=== PATIENT | male | born 1960 | race Caucasian/White ===

== ENCOUNTER 2020-12-22 09:04 | Day surgery (SDC) | payer BC ==
[2020-12-22] MEDS: Sodium Chloride 0.9% 1,000 ML IV SCH (09:39)
[2020-12-22] MEDS ORDERED: Glycopyrrolate 0.2 MG/ML 2 ML SDV ONE (10:50)
[2020-12-22] MEDS ORDERED: Benzocaine/Butamben/Tetracaine Top Spray 56 GM Canister ONE (10:50)
[2020-12-22] MEDS ORDERED: Propofol 200 MG/20 ML SDV ONE (10:50)
[2020-12-22 11:06] VITALS: BP 135/88; PULSE 76
--- NOTE | 2020-12-22 12:00 | OR ---
DATE OF OPERATION: 12/22/2020 SURGEON: Liang Sadler MD PREOPERATIVE DIAGNOSIS: Epigastric pain. POSTOPERATIVE DIAGNOSIS: Epigastric pain. PROCEDURE: EGD with biopsy. ANESTHESIA: MAC. ESTIMATED BLOOD LOSS: Minimal. COMPLICATIONS: None. INDICATION FOR THE PROCEDURE: The patient is a 60-year-old male who has history of GERD in the past and does take omeprazole regularly. Over the past month, had acute onset of increased pain and has had his dose of omeprazole increased and has had decreased symptoms since that time, however, still has intermittent bouts of increased pain. He is brought to the OR today for EGD. DESCRIPTION OF PROCEDURE: Informed consent was obtained with the patient. The patient was taken to the operating room, placed on the table in the left lateral decubitus position. Monitored anesthesia care has been secured. Esophagogastroscope was then advanced through the oral cavity and directed towards the second portion of duodenum. Duodenum was reached and appeared normal. Gastric antrum did have some minimal gastritis. Cold forceps biopsy was taken for H pylori testing. No ulcers identified. Retroflexion performed, which was also otherwise unremarkable. The scope was then withdrawn into the esophagus. Distal esophagus was unremarkable. Remainder of the esophagus was also otherwise unremarkable. Esophagogastroscope was then withdrawn. FINDINGS: Minimal gastritis in the antrum. RECOMMENDATIONS: We will follow up on H pylori biopsy testing. Otherwise, would continue current medications. If still symptomatic and H pylori negative, would recommend a short course of sucralfate. DOREEN/LUCIEN /[id number]
== END 2020-12-22 12:10 | disposition home or self-care (01) ==
LOC: LB.SDS 09:04
PROVIDERS: ATTEND Surgery
DX: K29.50 Unspecified chronic gastritis without bleeding (principal); K21.9 Gastro-esophageal reflux disease without esophagitis
CPT/HCPCS: 43239; J2704; J3490; J7030

== ENCOUNTER 2024-08-15 22:10 | Emergency (ER) | payer MEDICAID ==
[2024-08-15] MEDS: Aspirin 81 MG Tab.Chew PO ONE (22:25)
[2024-08-15 22:40] LABS: BASOPHILS ABSOLUTE AUTO 0.05 K/uL (0.02-0.10); BASOPHILS PERCENT AUTO 0.6 % (0.0-0.5); EOSINOPHILS ABSOLUTE AUTO 0.31 K/uL (0.04-0.40); EOSINOPHILS PERCENT AUTO 3.5 % (1.0-5.0); HEMOGLOBIN 15.4 g/dL (13.0-18.0); LYMPHOCYTES ABSOLUTE AUTO 2.32 K/uL (1.50-4.00); LYMPHOCYTES PERCENT AUTO 26.4 % (20.0-40.0); MEAN CORPUSCULAR HEMOGLOBIN 30.4 pg (27.0-32.0); MEAN CORPUSCULAR HGB CONC 33.5 g/dL (31.0-35.0); MEAN CORPUSCULAR VOLUME 91 fL (76-96); MEAN PLATELET VOLUME 10.3 fL (6.0-10.0); MONOCYTES ABSOLUTE AUTO 0.51 K/uL (0.20-0.80); MONOCYTES PERCENT AUTO 5.8 % (3.0-10.0); NEUTROPHILS PERCENT AUTO 63.7 % (45.0-70.0); PLATELET COUNT,PLT 252 K/uL (150-400); RED BLOOD CELL COUNT 5.07 M/uL (4.50-6.50); RED CELL DISTRIBUTION WIDTH 13.6 % (11.0-16.0); WHITE BLOOD CELL COUNT,WBC 8.8 K/uL (4.0-11.0)
[2024-08-15] MEDS ORDERED: Sodium Chloride 0.9% 10 ML Syringe FLUSH PRN (22:40)
[2024-08-15] MEDS: GI Cocktail Oral Solution 30 ML PO ONE (22:42)
[2024-08-15 23:00] LABS: MAGNESIUM 1.9 mg/dL (1.8-2.4); TROPONIN I HIGH SENSITIVITY 7.6 pg/ml (<=60.4)
[2024-08-15 23:04] LABS: ALBUMIN 3.6 g/dL (3.4-5.0); ANION GAP 13.3 mmol/L (5.0-15.0); BILIRUBIN TOTAL 0.4 mg/dL (0.0-1.0); BUN/CREATININE RATIO 7.8 (6-25); CALCIUM 9.1 mg/dL (8.5-10.1); CARBON DIOXIDE,CO2 26.8 mmol/L (21.0-32.0); CREATININE 1.41 mg/dL (0.70-1.30); EST CRCL DRUG DOSING (CG) 56.81 mL/min; POTASSIUM,K 4.1 mmol/L (3.5-5.1); PROTEIN TOTAL,TP 7.1 g/dL (6.4-8.2)
[2024-08-15] MEDS: Pantoprazole 40 MG Vial IVPUSH ONE (23:14)
[2024-08-15 23:17] LABS: INR 0.9 (1.0-3.5); PTT,PARTIAL THROMBOPLSTIN TIME 25.6 SECONDS (24.4-33.2)
[2024-08-15 23:19] LABS: PROTHROMBIN TIME 9.9 sec (9.0-11.5)
[2024-08-15] MEDS: Sodium Chloride 0.9% 1,000 ML IV ONE (23:25)
[2024-08-16] MEDS: Ketorolac 15 MG/ML SDV IVPUSH SCH (02:01)
[2024-08-16 02:23] VITALS: BP 128/88; PULSE 58
== END 2024-08-16 02:10 | disposition home or self-care (01) ==
LOC: LB.ED 22:10
DX: R07.89 Other chest pain (principal); Z79.899 Other long term (current) drug therapy
CPT/HCPCS: 36415; 71045; 80053; 83690; 83735; 84484; 85025; 85379; 85610; 85730; 93010; 96361; 96374; 96375; 99284; 99285-25; A9270-GY; J1885; J2470; J7030

== ENCOUNTER 2025-02-07 15:31 | Emergency (ER) | payer MEDICAID ==
[2025-02-07 16:07] LABS: BASOPHILS ABSOLUTE AUTO 0.07 K/uL (0.02-0.10); BASOPHILS PERCENT AUTO 0.6 % (0.0-0.5); EOSINOPHILS ABSOLUTE AUTO 0.42 K/uL (0.04-0.40); EOSINOPHILS PERCENT AUTO 3.6 % (1.0-5.0); LYMPHOCYTES ABSOLUTE AUTO 4.79 K/uL (1.50-4.00); LYMPHOCYTES PERCENT AUTO 41.1 % (20.0-40.0); MEAN PLATELET VOLUME 10.2 fL (6.0-10.0); MONOCYTES ABSOLUTE AUTO 0.88 K/uL (0.20-0.80); MONOCYTES PERCENT AUTO 7.5 % (3.0-10.0); NEUTROPHILS ABSOLUTE AUTO 5.50 K/uL (2.00-7.50); NEUTROPHILS PERCENT AUTO 47.2 % (45.0-70.0); PLATELET COUNT,PLT 316 K/uL (150-400); RED BLOOD CELL COUNT 5.12 M/uL (4.50-6.50); RED CELL DISTRIBUTION WIDTH 13.6 % (11.0-16.0); WHITE BLOOD CELL COUNT,WBC 11.7 K/uL (4.0-11.0)
[2025-02-07 16:17] LABS: A/G RATIO 1.0 (0.8-2.0); ALANINE AMINOTRANSFERASE,ALT 26.0 U/L (12-78); ASPARTATE AMNIOTRANSFERASE,AST 18.0 U/L (15-37); BILIRUBIN TOTAL 0.3 mg/dL (0.0-1.0); BLOOD UREA NITROGEN,BUN 13.0 mg/dL (8-26); CARBON DIOXIDE,CO2 22.9 mmol/L (21.0-32.0); CHLORIDE,CL 103.0 mmol/L (98-107); CREATININE 1.23 mg/dL (0.70-1.30); EST CRCL DRUG DOSING (CG) 62.27 mL/min; ESTIMATED GFR 66.0 mL/min (>60); GLUCOSE RANDOM 114.0 mg/dL (74-100); POTASSIUM,K 3.1 mmol/L (3.5-5.1); PROTEIN TOTAL,TP 7.5 g/dL (6.4-8.2); SODIUM,NA 141.0 mmol/L (136-145)
[2025-02-07 16:20] LABS: PCO2 ARTERIAL 23.0 mmHg (35-45)
[2025-02-07] MEDS ORDERED: Sodium Chloride 0.9% 10 ML Syringe FLUSH PRN (16:21)
[2025-02-07 16:22] LABS: BASE EXCESS ARTERIAL -6.5 (-2-2); BICARBONATE,ARTERIAL 17.0 mmol/L (22-26); O2 SATURATION ARTERIAL 99.4 % (95-98); PO2 ARTERIAL 137.0 mmHg (80-105)
[2025-02-07 18:14] LABS: AMPHETAMINES SCREEN, URINE NEGATIVE (NEGATIVE); METHADONE SCREEN, URINE NEGATIVE (NEGATIVE); METHAMPHETAMINES SCREEN, URINE NEGATIVE (NEGATIVE); OXYCODONE SCREEN,URINE NEGATIVE (NEGATIVE)
[2025-02-07 18:15] LABS: THC SCREEN,URINE 50 NG/ML POSITIVE (NEGATIVE)
[2025-02-07 19:35] VITALS: BP 113/75; PULSE 67
== END 2025-02-07 19:25 | disposition home or self-care (01) ==
LOC: LB.ED 15:31
DX: R56.9 Unspecified convulsions (principal); I10 Essential (primary) hypertension; F17.290 Nicotine dependence, other tobacco product, uncomplicated; Z79.899 Other long term (current) drug therapy
CPT/HCPCS: 36415; 36600; 70450; 71045; 80053; 80307; 82803; 84484; 85025; 88740; 96365; 96367; 99285-25; J1953; J3480; J7050